=== PATIENT | female | born 1960 | race Two or more races ===

== ENCOUNTER 2017-09-26 12:41 | Emergency (ER) | payer OTHER ==
[~2017-09-26] VITALS: Ht 152.4 cm; Wt 61.2 kg
[~2017-09-26 12:41] MED LIST: CEFTIN500 MG PO; CLARITIN10 MG PO; FLONASE16 GM NS; ZANTAC300 MG PO; [UNRECOGNIZED DRUG - OTHER]
== END 2017-09-26 16:05 | disposition home or self-care (01) ==
LOC: ER 12:41
DX: K52.9 Noninfective gastroenteritis and colitis, unspecified (principal)

== ENCOUNTER 2017-11-16 12:59 | Emergency (ER) | payer OTHER ==
[~2017-11-16] VITALS: Ht 152.4 cm; Wt 61.2 kg
[2017-11-16] MEDS ORDERED: [UNRECOGNIZED DRUG - OTHER] (13:18)
== END 2017-11-16 16:01 | disposition home or self-care (01) ==
LOC: ER 12:59
DX: M54.5 Low back pain (principal); R10.31 Right lower quadrant pain

== ENCOUNTER → 2020-01-29 | Outpatient (CLI) | payer OTHER ==
[~2020-01-29] MED LIST changes: +[UNRECOGNIZED DRUG - OTHER]
== END | disposition home or self-care (01) ==
LOC: OFIC 805 11:00
PROVIDERS: ATTEND Otolaryngology
DX: M54.2 Cervicalgia (principal); R13.19 Other dysphagia; K21.9 Gastro-esophageal reflux disease without esophagitis; R07.0 Pain in throat

== ENCOUNTER 2020-02-16 10:03 | Outpatient (CLI) | payer OTHER | END 2020-02-16 10:04 | disposition home or self-care (01) | LOC: RX STUDY 10:03 | PROVIDERS: ATTEND Otolaryngology | DX: R13.19 Other dysphagia (principal); K21.9 Gastro-esophageal reflux disease without esophagitis ==

== ENCOUNTER → 2020-02-19 | Outpatient (CLI) | payer OTHER | END | disposition home or self-care (01) | LOC: OFIC 805 09:45 | PROVIDERS: ATTEND Otolaryngology | DX: K21.9 Gastro-esophageal reflux disease without esophagitis (principal); R07.0 Pain in throat; R13.19 Other dysphagia; M54.2 Cervicalgia ==

== ENCOUNTER 2020-03-13 10:25 | Outpatient (CLI) | payer OTHER | END 2020-03-13 10:44 | disposition home or self-care (01) | LOC: TOM 10:25 | PROVIDERS: ATTEND Orthopaedic Surgery | DX: M48.02 Spinal stenosis, cervical region (principal); M43.12 Spondylolisthesis, cervical region; M50.00 Cervical disc disorder with myelopathy, unspecified cervical region; M50.10 Cervical disc disorder with radiculopathy, unspecified cervical region ==

== ENCOUNTER 2020-03-13 12:48 | Outpatient (CLI) | payer OTHER | END 2020-03-13 15:33 | disposition home or self-care (01) | LOC: NUCLEAR 12:48 | PROVIDERS: ATTEND Orthopaedic Surgery | DX: M85.89 Other specified disorders of bone density and structure, multiple sites (principal); M50.00 Cervical disc disorder with myelopathy, unspecified cervical region; M50.10 Cervical disc disorder with radiculopathy, unspecified cervical region ==

== ENCOUNTER 2020-10-08 07:36 | Outpatient (CLI) | payer OTHER | END 2020-10-08 07:37 | disposition home or self-care (01) | LOC: LAB 07:36 | PROVIDERS: ATTEND Internal Medicine Endocrinology, Diabetes & Metabolism | DX: K76.1 Chronic passive congestion of liver (principal); K86.1 Other chronic pancreatitis; I11.0 Hypertensive heart disease with heart failure; D13.7 Benign neoplasm of endocrine pancreas; N39.0 Urinary tract infection, site not specified; D56.1 Beta thalassemia; E78.2 Mixed hyperlipidemia ==

== ENCOUNTER 2022-02-26 07:10 | Outpatient (CLI) | payer OTHER | END 2022-02-26 07:23 | disposition home or self-care (01) | LOC: TOM 07:10 | DX: K57.30 Diverticulosis of large intestine without perforation or abscess without bleeding (principal); Z86.010 Personal history of colon polyps; K63.89 Other specified diseases of intestine; K63.5 Polyp of colon ==

== ENCOUNTER 2022-03-16 12:02 | Emergency (ER) | payer OTHER ==
[~2022-03-16] VITALS: Ht 152.4 cm; Wt 59.4 kg
[2022-03-16] MEDS ORDERED: NORFLEX100MG PO (15:45)
[2022-03-16] MEDS ORDERED: KETO10TA2 PO (15:45)
== END 2022-03-16 16:34 | disposition home or self-care (01) ==
LOC: ER 12:02
DX: M54.89 Other dorsalgia (principal)

== ENCOUNTER 2022-10-22 09:32 | Outpatient (CLI) | payer OTHER ==
[~2022-10-22 09:32] MED LIST changes: +KETO10TA2 PO; +NORFLEX100MG PO
== END 2022-10-22 09:39 | disposition home or self-care (01) ==
LOC: NUCLEAR 09:32
PROVIDERS: ATTEND Internal Medicine Cardiovascular Disease
DX: I20.1 Angina pectoris with documented spasm (principal)

== ENCOUNTER 2022-10-29 09:56 | Outpatient (CLI) | payer OTHER | END 2022-10-29 09:59 | disposition home or self-care (01) | LOC: NUCLEAR 09:56 | PROVIDERS: ATTEND Internal Medicine Cardiovascular Disease | DX: I34.1 Nonrheumatic mitral (valve) prolapse (principal) ==